=== PATIENT | female | born 1990 ===

== ENCOUNTER 2016-10-22 20:39 | Emergency (ER) | payer OTHER ==
[2016-10-22 22:53] LABS: HCG,QUALITATIVE URINE NEGATIVE
== END 2016-10-22 23:47 | disposition home or self-care (01) ==
LOC: ED 20:39
DX: S80.02XA Contusion of left knee, initial encounter (principal); S39.012A Strain of muscle, fascia and tendon of lower back, initial encounter; V43.52XA Car driver injured in collision with other type car in traffic accident, initial encounter; Y92.410 Unspecified street and highway as the place of occurrence of the external cause